=== PATIENT | female | born 1985 | race Caucasian/White ===

== ENCOUNTER 2020-08-17 11:05 | Outpatient (CLI) | payer OTHER ==
--- NOTE | 2020-08-17 11:27 | RAD ---
XR Knee Rt 4 View STANDARD HISTORY: Right knee pain FINDINGS: No fracture or dislocation is identified. There is fullness in the suprapatellar pouch, suspicious fo r joint effusion.
== END 2020-08-17 11:06 | disposition home or self-care (01) ==
LOC: SCSRAD 11:05
PROVIDERS: ATTEND Family Medicine
DX: M25.561 Pain in right knee (principal)